=== PATIENT | female | born 1940 | race Hispanic/Latino ===

== ENCOUNTER → 2016-04-11 | Day surgery (SDC) | payer OTHER ==
[~2016-04-11] VITALS: Ht 157.5 cm; Wt 77.1 kg
[~2016-04-11] MED LIST: ASPIRIN325 M2 PO; ATENOLOL50 M1 PO; CIPRO 500MG TA500 MG PO; CIPRO500 M1 PO; CYCLOBENZAPRINE5 M2 PO; GLIPIZIDE ER10 M1 PO; JANUVIA100 M1 PO; JANUVIA50 M1 PO; LISINOPRIL20 M1 PO; LOSARTAN POTAS100 M1 PO; METOCLOPRAMIDE H5 MG PO; METRONIDAZOLE500 MG PO; PERCOCET 325 MG1 TA2 PO; PIOGLITAZONE HC15 MG PO; SERTRALINE HCL50 MG PO; SIMVASTATIN40 M1 PO; TYLENOL #31 TAB PO
--- NOTE | 2016-04-11 09:49 | Operative Report ---
Operative/Inv Procedure Report Surgery Date: 04/11/16 Name of Procedure: Cataract extraction lens implantation left eye Pre-Operative Diagnosis: Age related cataract left eye 20/100 vision Post-Operative Diagnosis: Same Estimated Blood Loss: none Surgeon/Ecology Teacher: GERDA FRAZIER,DAYNA Quintanilla Anesthesia: local monitored anesthesi Complications: None Operative/Procedure Note Note: The patient was brought to the operating room standard monitoring equipment was attached the patient was prepped and draped in the usual fashion for intraocular surgery. A lid speculum was placed to retract the lids. The case was begun by making 1 partial-thickness corneal relaxing incisions at 180. A temporal incision with a 2.4 mm keratome. The eye was stabilized with a Bee ring during this incision. 1 mL of non-preserved lidocaine was introduced into the anterior chamber to provide anesthesia. The anterior chamber was then filled and deepened with viscoelastic. A curvilinear capsulorrhexis was achieved using a 30-gauge needle and is a cystotome and capsulorrhexis was finished using a Utrata forceps. A second or paracentesis incision was made temporally with a 1 mm MVR blade. The lens was then hydrodissected with balanced salt solution and found to be rotatable. The lens was emulsified using phacoemulsification and a modified four-quadrant cracking technique. The residual cortical material was removed using automated irrigation and aspiration and as much of the anterior capsular rim was cleaned as well as possible. The posterior capsule was cleaned first with the automated machine on a low setting and then manually with a Regulo squeegee. The capsular bag was deepened with viscoelastic. The lens a Technis 1 22.5 Diopter placed into the bag under direct visualization and rotated so that the haptics were at 12 and 6:00. Viscoelastic was then removed from the eye by flushing it out and then by automated irrigation and aspiration. The eye was pressurized to a normal tone. 1/10 of a cc of vancomycin solution was introduced into the anterior chamber to provide antibiotic prophylaxis. The wounds were sealed by hydrating the stroma adjacent to them and the eye was left at a proper tone after the wounds were checked and found not to be leaking. The lid speculum was removed from the orbit. Antibiotic and steroid drops were placed on the eye and then the eye was shielded. Monitoring equipment was removed from the patient and the patient was removed from the operative suite to the holding area. The patient tolerated the procedure well and will be seen in the office tomorrow.
== END ==
LOC: STS 04:43
DX: H25.9 Unspecified age-related cataract (principal); E78.00 Pure hypercholesterolemia, unspecified; E11.9 Type 2 diabetes mellitus without complications; Z79.84 Long term (current) use of oral hypoglycemic drugs; I10 Essential (primary) hypertension
CPT/HCPCS: J2250; V2632

== ENCOUNTER → 2016-04-26 | Day surgery (SDC) | payer OTHER ==
[~2016-04-26] VITALS: Ht 157.5 cm; Wt 77.1 kg
--- NOTE | 2016-04-26 09:33 | Operative Report ---
Operative/Inv Procedure Report Surgery Date: 04/26/16 Name of Procedure: Cataract extraction lens implantation right eye Pre-Operative Diagnosis: Age-related cataract right eye 20/40 vision 20/60 glare vision Post-Operative Diagnosis: Same Estimated Blood Loss: none Surgeon/Heading Maker: GERDA FRAZIER,DAYNA Quintanilla Anesthesia: local monitored anesthesi Complications: None Operative/Procedure Note Note: The patient was brought to the operating room standard monitoring equipment was attached the patient was prepped and draped in the usual fashion for intraocular surgery. A lid speculum was placed to retract the lids. The case was begun by making 2 partial-thickness corneal relaxing incisions at 180. A temporal incision with a 2.4 mm keratome. The eye was stabilized with a Bee ring during this incision. 1 mL of non-preserved lidocaine was introduced into the anterior chamber to provide anesthesia. The anterior chamber was then filled and deepened with viscoelastic. A curvilinear capsulorrhexis was achieved using a 30-gauge needle and is a cystotome and capsulorrhexis was finished using a Utrata forceps. A second or paracentesis incision was made temporally with a 1 mm MVR blade. The lens was then hydrodissected with balanced salt solution and found to be rotatable. The lens was emulsified using phacoemulsification and a modified four-quadrant cracking technique. The residual cortical material was removed using automated irrigation and aspiration and as much of the anterior capsular rim was cleaned as well as possible. The posterior capsule was cleaned first with the automated machine on a low setting and then manually with a Regulo squeegee. The capsular bag was deepened with viscoelastic. The lens a Technis 1 22.5 Diopter placed into the bag under direct visualization and rotated so that the haptics were at 12 and 6:00. Viscoelastic was then removed from the eye by flushing it out and then by automated irrigation and aspiration. The eye was pressurized to a normal tone. 1/10 of a cc of vancomycin solution was introduced into the anterior chamber to provide antibiotic prophylaxis. The wounds were sealed by hydrating the stroma adjacent to them and the eye was left at a proper tone after the wounds were checked and found not to be leaking. The lid speculum was removed from the orbit. Antibiotic and steroid drops were placed on the eye and then the eye was shielded. Monitoring equipment was removed from the patient and the patient was removed from the operative suite to the holding area. The patient tolerated the procedure well and will be seen in the office tomorrow.
== END ==
LOC: STS 03:07
DX: H25.9 Unspecified age-related cataract (principal); I10 Essential (primary) hypertension; E11.9 Type 2 diabetes mellitus without complications
CPT/HCPCS: J2250; V2632

== ENCOUNTER 2016-09-16 20:07 | Emergency (ER) | payer OTHER ==
[~2016-09-16] VITALS: Ht 149.9 cm; Wt 72.6 kg
[~2016-09-16 20:07] MED LIST changes: -CYCLOBENZAPRINE5 M2 PO
--- NOTE | 2016-09-16 22:12 | ED NECK/BACK PAIN COMPLAINT ---
History of Present Illness General Chief Complaint: General Adult Stated Complaint: "PAIN ALL OVER" "PAIN IN GENERAL" Source: patient, family, old records, spanish interpreter/translator Exam Limitations: language barrier Vital Signs & Intake/Output Vital Signs & Intake/Output Vital Signs Date Time Temp Pulse Resp B/P B/P Pulse O2 O2 Flow FiO2 Mean Ox Delivery Rate 09/16 2243 96 Room Air 09/16 2242 70 16 130/46 96 Room Air 09/16 2031 97.1 71 18 94/54 96 Room Air Allergies Coded Allergies: Penicillins (RASH 10/17/15) Reconcile Medications Aspirin (Aspirin*) 325 MG TABLET 1 TAB PO DAILY HEART/BLOOD (Reported) Atenolol 50 MG TABLET 1 TAB PO DAILY HEART (Reported) Cyclobenzaprine HCl 5 MG TABLET 1 TAB PO TIDPRN PRN PAIN Losartan Potassium 100 MG TABLET 1 TAB PO DAILY BP (Reported) Metoclopramide HCl 5 MG TABLET 1 TAB PO TID GI (Reported) Pioglitazone HCl (Unknown Strength) TABLET (Unknown Dose) PO DAILY DIABETES ( Reported) Sertraline HCl 50 MG TABLET 1 TAB PO DAILY MENTAL HEALTH (Reported) Simvastatin (Simvastatin*) 40 MG TABLET 1 TAB PO QPM CHOLESTEROL (Reported) Sitagliptin Phosphate (Januvia) 100 MG TABLET 1 TAB PO DAILY DIABETES ( Reported) Triage Note: PT TO TRIAGE WITH C/O MIDDLE BACK PAIN 01/16 [id number]. DENIES INJURY. NO OTHER COMPLAINTS. VSS. Triage Nurses Notes Reviewed? yes Onset: Gradual Duration: week(s): (3) Timing: recent history Quality/Severity: moderate, severe Location: T-spine Radiation: none Context: UNKNOWN Loss of Consciousness: no loss of consciousness Associated Symptoms: DENIES HPI: 76-year-old female with history of hypertension I questional presents to ER for evaluation complaining of bilateral upper back pain is worse with movement and palpation for the past 3 weeks intermittent in nature waxing and waning. She is not taken anything for symptoms are sought care for the symptoms until today. No pain with inspiration no cough no hemoptysis no recent trauma or fall. She denies any arm or leg pain numbness or tingling. No bowel pain nausea or vomiting. No chest pain dizziness lightheadedness palpitations. On arrival patient is noted to have a low blood pressure. She has no history of low blood pressure in the past she denies dizziness light has fever chills urinary complaints no lower back pain (LOUISE GIRALDO) Past History Travel History Traveled to [place] past 21 day No Medical History Any Pertinent Medical History? see below for history Neurological: NONE EENT: NONE Cardiovascular: hypertension, hyperlipidemia Respiratory: NONE Gastrointestinal: NONE Hepatic: NONE Renal: NONE Musculoskeletal: NONE Psychiatric: NONE Endocrine: diabetes Blood Disorders: NONE Cancer(s): NONE SUPERVISORY CLERK/Reproductive: NONE Surgical History Surgical History: cholecystectomy Psychosocial History What is your primary language Montserratian Tobacco Use: Never used Family History Hx Contributory? No (LOUISE GIRALDO) Review of Systems Review of Systems Constitutional: Reports: see HPI. All Other Systems: Reviewed and Negative Comments Review of systems: See HPI, All other systems negative. Constitutional, no chills no fever, no malaise HEENT: no sore throat no congestion, Cardiovascular: No chest pain , no palpitation Skin: no rashes, no change in skin Respiratory: No dyspnea no cough no sputum GI: No nausea no vomiting, no diarrhea, no bloating/constipation : No dysuria Muscle skeletal: No joint pain, no joint swelling, back pain, no neck pain, Neurologic: No numbness no headache Psych: No stress Heme/endocrine: No bruising no bleeding Immunology: No lymphadenopathy (LOUISE GIRALDO) Physical Exam Physical Exam General Appearance: well developed/nourished, no apparent distress, alert Neck: normal inspection Comments: Well-developed well-nourished person in no acute distress HEENT: Normal EENT exam; PERRL, EOMI. HEAD is atraumatic. moist mucous membranes. Neck: Supple, normal range of motion Back: Bilateral upper back muscular tenderness to palpation or ecchymosis no rash no midline tenderness Full range of motion Cardiovascular: Regular rate and rhythms no murmurs rubs Respiratory: Chest nontender.There were no bony deformities, no asymmetry. No respiratory distress. Patient speaking in full complete sentences. Breath sounds clear to auscultation bilaterally: NO W/R/R Abdomen: Soft, nontender nondistended, no appreciable organomegaly. Normal bowel sounds. No rebound/guarding, Extremity: Pain in back is reproducible with movement of bilateral shoulders No edema, full range of motion of extremities, normal and equal pulses bilaterally, 5 out of 5 strength noted to bilateral upper and lower extremities Neuro: Alert oriented x3, motor sensory normal, There were no obvious focal neurologic abnormalities. Skin: No appreciable rash on exposed skin, skin is warm and dry. Psych: Mood and affect is normal, memory and judgment is normal. (LOUISE GIRALDO) Progress Differential Diagnosis: herniated disc, myofascial strain, thoracic outlet syn, T/L spine injury ( ), compression fx Plan of Care: Orders Procedure Date/time Status XRY-THORACIC SPINE 09/16 2222 Active X-rays ordered pain is reproducible in the back reproducible range of motion of the upper extremities there is no shortness of breath no pain with inspiration symptoms have been intermittent waxing and waning in intensity for the past 3 weeks they have not sought care until today I discussed with the patient at length all of their results. I had an extensive conversation regarding need for close follow up with their primary care physician this week as well as return precautions. I answered all of their questions, they feel comfortable with the plan and follow-up care. I discussed with the patient/family the medications that they will receive. I gave them signs and symptoms that could indicate an adverse reaction. I have advised them to limit their activities until they can see how they respond to the medication. (LOUISE GIRALDO) Diagnostic Imaging: Viewed by Me: Radiology Read. Discussed w/RAD: Radiology Read. Radiology Impression: PATIENT: YOKO BRITTON PRESENT AGE: 76 PATIENT ACCOUNT NO: [id number] : 39 LOCATION: [facility] ORDERING PHYSICIAN: LOUISE DEL CID SERVICE DATE: 09/16/16 EXAM TYPE: RAD - XRY-THORACIC SPINE EXAMINATION: XR THORACIC SPINE CLINICAL INFORMATION: Bilateral upper back pain for 3 weeks COMPARISON: None TECHNIQUE: AP and lateral views of the thoracic spine were obtained. FINDINGS: Alignment appears anatomic. Vertebral body heights are maintained. No acute fracture is seen. Moderately prominent endplate osteophytes are seen throughout the spine. IMPRESSION: No acute findings identified. Moderate degenerative changes. DICTATED BY: JOHN HOUSE MD DATE/TIME DICTATED:09/16/162307 TUBE SORTER:CRISTOPHER DATE/ TIME TRANSCRIBED:09/16/162307 CONFIDENTIAL, DO NOT COPY WITHOUT APPROPRIATE AUTHORIZATION. <Electronically signed in Other Vendor System> SIGNED BY: JOHN HOUSE MD 09/16/16 4155 (LOUISE GIRALDO) Departure Departure Disposition: HOME OR SELF CARE Condition: Stable Clinical Impression Primary Impression: Upper back strain Referrals: SHAKA FRAZIER,KAMERON Mosquera (PCP/Family) Additional Instructions: Rest, interchange ice and heat. Tylenol or Motrin every 4-6 hours. Flexeril as directed use caution as this may make her drowsy follow-up with her primary care physician on Sunday return anytime sooner with any concerns.this was sent to [facility] Departure Forms: Customer Survey General Discharge Information Prescriptions: Current Visit Scripts Cyclobenzaprine HCl 1 TAB PO TIDPRN PRN PAIN #12 TAB (LOUISE GIRALDO) PA/ADMINISTRATIVE SUPPORT ASSISTANT Co-Sign Statement Statement: ED Attending supervision documentation- [X] I saw and evaluated the patient. I have also reviewed all the pertinent lab results and diagnostic results. I agree with the findings and the plan of care as documented in the PA's/ADMINISTRATIVE SUPPORT ASSISTANT's documentation. [] I have reviewed the ED Record and agree with the PA's/ADMINISTRATIVE SUPPORT ASSISTANT's documentation. [] Additions or exceptions (if any) to the PAs/ADMINISTRATIVE SUPPORT ASSISTANT's note and plan are summarized below: [] (KOTA FRAZIER,ELGIN Rodas)
[2016-09-16 22:42] VITALS: BP 130/46
[2016-09-16] MEDS ORDERED: CYCLOBENZAPRINE5 M2 PO (23:04)
--- NOTE | 2016-09-16 23:14 | RADIOLOGY REPORT ---
EXAMINATION: XR THORACIC SPINE CLINICAL INFORMATION: Bilateral upper back pain for 3 weeks COMPARISON: None TECHNIQUE: AP and lateral views of the thoracic spine were obtained. FINDINGS: Alignment appears anatomic. Vertebral body heights are maintained. No acute fracture is seen. Moderately prominent endplate osteophytes are seen throughout the spine. IMPRESSION: No acute findings identified. Moderate degenerative changes.
== END 2016-09-16 23:30 ==
LOC: ERH 20:07
DX: S29.012A Strain of muscle and tendon of back wall of thorax, initial encounter (principal); I10 Essential (primary) hypertension
CPT/HCPCS: 72070